=== PATIENT | female | born 1940 | race Caucasian/White ===

== ENCOUNTER 2023-07-26 01:26 | Inpatient (IN) | payer MEDICARE, MEDICAID ==
[~2023-07-26] VITALS: Ht 162.6 cm; Wt 72.6 kg
[2023-07-26] MEDS ORDERED: GUAIFENESIN 600MG ER TABLET PO ONE (01:45)
[2023-07-26] MEDS ORDERED: ACETAMINOPHEN 325MG TABLET PO ONE (01:45)
[2023-07-26 03:14] LABS: BASOPHILS % 0.4 % (0.0-2.0); HEMATOCRIT. 40.1 % (36.0-48.0); HEMOGLOBIN. 13.1 g/dL (12.0-16.0); LYMPHOCYTES % 15.8 % (20.0-50.0); MEAN CORPUSCULAR HEMOGLOBIN 28.9 pg (28.0-32.0); MEAN CORPUSCULAR HGB CONC 32.7 g/dL (31.0-37.0); MEAN CORPUSCULAR VOLUME 88.2 fL (81.0-99.0); MEAN PLATELET VOLUME 9.3 fl (7.4-10.4); MONOCYTES % 7.2 % (2.0-8.0); NEUTROPHILS % 76.6 % (40.0-76.0); PLATELET 141 x1000/uL (130-400); RED BLOOD CELL COUNT 4.55 mill/uL (4.2-5.4); RED CELL DISTRIBUTION WIDTH 14.7 % (11.6-14.6); WHITE BLOOD COUNT 9.5 x1000/uL (4.5-11.0)
[2023-07-26] MEDS ORDERED: CEFTRIAXONE 1GM PREMIX 50 ML IV ONE (03:26)
[2023-07-26 03:30] LABS: ALANINE AMINOTRANSFERASE 11 IU/L (10-49); ALBUMIN 4.4 g/dL (3.2-4.8); ASPARTATE AMINOTRANSFERASE 29 IU/L (<34); BILIRUBIN TOTAL 2.7 mg/dL (0.1-1.0); CALCIUM 9.2 mg/dL (8.7-10.4); CARBON DIOXIDE 34 mEq/L (21-32); CHLORIDE 98 mEq/L (98-107); CREATINE KINASE 259 IU/L (34-145); CREATININE 0.8 mg/dL (0.6-1.0); GLUCOSE 134 mg/dL (70-105); POTASSIUM 3.9 mEq/L (3.5-5.1); PROTEIN TOTAL 6.9 g/dL (6.0-8.3); SODIUM 140 mEq/L (136-145); UREA NITROGEN BLOOD 18 mg/dL (9-23)
[2023-07-26 03:36] LABS: INR 1.2; PROTHROMBIN TIME 12.4 sec (9.6-11.0)
[2023-07-26] MEDS ORDERED: AZITHROMYCIN 500MG/250ML 250 ML IV ONE (03:44)
[2023-07-26] MEDS ORDERED: CEFTRIAXONE 1GM PREMIX 50 ML IV NR (04:00)
[2023-07-26] MEDS ORDERED: AZITHROMYCIN 500MG in DEXTROSE 5% WATER 250ML IV NR (04:00)
[2023-07-26 05:08] LABS: ETHANOL BLOOD < 10 mg/dL (<10); TROPONIN I HIGH SENSITIVITY 17 ng/L (3.0-34)
[2023-07-26] MEDS ORDERED: SODIUM CHLORIDE 0.9% 1,000 ML IV ONE ×2 (05:30→07:15)
[2023-07-26] MEDS ORDERED: ACETAMINOPHEN 325MG TABLET PO PRN (06:30)
[2023-07-26] MEDS ORDERED: CLONIDINE 0.1MG TABLET PO PRN (06:30)
[2023-07-26] MEDS ORDERED: ONDANSETRON HCL 4MG/2ML INJ IV PRN (06:30)
[2023-07-26] MEDS ORDERED: DOCUSATE SODIUM 100MG CAPSULE PO PRN (06:30)
[2023-07-26] MEDS ORDERED: GUAIFENESIN 200MG/10ML SUGAR FREE UDC PO PRN (06:30)
[2023-07-26] MEDS ORDERED: MAGNESIUM/ALUMINUM HYDROXIDE/SIMETHICONE 30ML UDC PO PRN (06:30)
[2023-07-26] MEDS ORDERED: DIPHENHYDRAMINE 50MG/ML VIAL IV PRN (06:30)
[2023-07-26] MEDS ORDERED: IPRATROPIUM BROMIDE (0.02%) 0.5MG/2.5ML NEB HHN NR (07:00)
[2023-07-26] MEDS ORDERED: DEXTROSE 50% WATER 50ML SYRINGE IV PRN (07:00)
[2023-07-26 09:00] VITALS: BP 123/51; PULSE 107; RESP 20; TEMP 97.9
[2023-07-26] MEDS: BLOOD SUGAR DIAGNOSTIC STRIP TEST SCH ×4 (09:00→21:14)
[2023-07-26 10:00] VITALS: BP 123/51; PULSE 107; RESP 18; TEMP 97
[2023-07-26 12:00] VITALS: BP 127/58; PULSE 111; RESP 18; TEMP 98.1
[2023-07-26] MEDS: ENOXAPARIN 40MG/0.4ML SYR SUBCUT SCH (12:20)
[2023-07-26 16:00] VITALS: BP 118/69; PULSE 80; RESP 16; TEMP 97
[2023-07-26] MEDS: MONTELUKAST SODIUM 10MG TABLET PO SCH (17:54)
[2023-07-26 20:00] VITALS: BP 145/79; PULSE 125; RESP 20; TEMP 98.8
[2023-07-26] MEDS: BUDESONIDE 0.5MG/2ML NEB HHN SCH (20:05)
[2023-07-26] MEDS: INSULIN LISPRO 100 UNITS/ML SUBCUT SCH (21:00)
[2023-07-26] MEDS: ATORVASTATIN CALCIUM 10MG TABLET PO SCH (22:56)
[2023-07-27] VITALS (62 sets, daily range): BP systolic 90–145; BP diastolic 47–101; PULSE 85–119; RESP 18–30; TEMP 97.1–101.4
[2023-07-27 00:53] LABS: BG BASE EXCESS 3.1 mmol/L (-2.0-2.0); BG CARBOXYHEMOGLOBIN 0.3 % (0.5-1.5); BG DEOXYHEMOGLOBIN 10.5 % (0.0-5.0); BG FRACTION INSPIRED OXYGEN 60; BG HCO3 ACT 33.4 mmol/L (22.0-26.0); BG METHEMOGLOBIN 0.4 % (0.0-1.5); BG OXYGEN SATURATION 89.4 % (92.0-98.5); BG OXYHEMOGLOBIN 88.8 % (94.0-97.0); BG PH 7.222 (7.350-7.450); BG PO2 62.8 mmHg (75.0-100.0); BG SAMPLE SITE RIGHT RADIAL; BG TOTAL HEMOGLOBIN 13.1 g/dL (12.0-18.0); BG VENT MODE MASK - SIMPLE
[2023-07-27 04:55] LABS: BG BASE EXCESS 1.2 mmol/L (-2.0-2.0); BG CARBOXYHEMOGLOBIN 0.2 % (0.5-1.5); BG DEOXYHEMOGLOBIN 2.4 % (0.0-5.0); BG FRACTION INSPIRED OXYGEN 60; BG HCO3 ACT 32.3 mmol/L (22.0-26.0); BG METHEMOGLOBIN 0.3 % (0.0-1.5); BG OXYGEN SATURATION 97.6 % (92.0-98.5); BG OXYHEMOGLOBIN 97.1 % (94.0-97.0); BG PCO2 91.1 mmHg (35.0-45.0); BG PH 7.168 (7.350-7.450); BG PO2 108.5 mmHg (75.0-100.0); BG SAMPLE SITE RIGHT RADIAL; BG TOTAL HEMOGLOBIN 12.8 g/dL (12.0-18.0); BG VENT MODE MASK - BIPAP
[2023-07-27] MEDS: CEFTRIAXONE 1,000 MG in DEXTROSE 5% WATER 50 ML IV SCH (05:11)
[2023-07-27] MEDS ORDERED: FENTANYL CITRATE/PF 2,500 MCG in SODIUM CHLORIDE 0.9% 200 ML IV PRN ×2 (05:45→05:48)
[2023-07-27] MEDS ORDERED: MIDAZOLAM 100MG/100ML PMX 100 ML IV PRN (05:45)
[2023-07-27] MEDS: BLOOD SUGAR DIAGNOSTIC STRIP TEST SCH ×4 (06:15→23:55)
[2023-07-27] MEDS: INSULIN LISPRO 100 UNITS/ML SUBCUT SCH ×3 (06:22→17:10)
[2023-07-27] MEDS: MIDAZOLAM HCL 100 MG in SODIUM CHLORIDE 0.9% 100 ML IV PRN (06:35)
[2023-07-27] MEDS: AZITHROMYCIN 500MG in DEXTROSE 5% WATER 250ML IV SCH (06:35)
[2023-07-27] MEDS: ENOXAPARIN 40MG/0.4ML SYR SUBCUT SCH (08:25)
[2023-07-27] MEDS: ACETAMINOPHEN 325MG TABLET PO PRN (08:26)
[2023-07-27] MEDS: BUDESONIDE 0.5MG/2ML NEB HHN SCH ×2 (08:46→20:25)
[2023-07-27 08:49] LABS: BG BASE EXCESS 2.8 mmol/L (-2.0-2.0); BG CARBOXYHEMOGLOBIN 0.3 % (0.5-1.5); BG DEOXYHEMOGLOBIN 0.8 % (0.0-5.0); BG FRACTION INSPIRED OXYGEN 60; BG HCO3 ACT 27.7 mmol/L (22.0-26.0); BG METHEMOGLOBIN 0.2 % (0.0-1.5); BG OXYGEN SATURATION 99.2 % (92.0-98.5); BG OXYHEMOGLOBIN 98.7 % (94.0-97.0); BG PCO2 43.9 mmHg (35.0-45.0); BG PH 7.418 (7.350-7.450); BG PO2 208.3 mmHg (75.0-100.0); BG SAMPLE SITE RIGHT RADIAL; BG TOTAL HEMOGLOBIN 12.1 g/dL (12.0-18.0); BG VENT MODE VENT - AC
[2023-07-27 08:54] LABS: BASOPHILS % 0.3 % (0.0-2.0); HEMATOCRIT. 33.8 % (36.0-48.0); LYMPHOCYTES % 12.4 % (20.0-50.0); MEAN CORPUSCULAR HEMOGLOBIN 29.2 pg (28.0-32.0); MEAN CORPUSCULAR HGB CONC 32.6 g/dL (31.0-37.0); MEAN CORPUSCULAR VOLUME 89.5 fL (81.0-99.0); MEAN PLATELET VOLUME 9.6 fl (7.4-10.4); NEUTROPHILS % 79.3 % (40.0-76.0); PLATELET 125 x1000/uL (130-400); RED BLOOD CELL COUNT 3.77 mill/uL (4.2-5.4); RED CELL DISTRIBUTION WIDTH 14.7 % (11.6-14.6); WHITE BLOOD COUNT 6.8 x1000/uL (4.5-11.0)
[2023-07-27] MEDS ORDERED: CEFTRIAXONE 1GM PREMIX 50 ML IV SCH (09:00)
[2023-07-27] MEDS ORDERED: AZITHROMYCIN 500MG/250ML 250 ML IV SCH (09:00)
[2023-07-27] MEDS: PANTOPRAZOLE SODIUM 40 MG/VIAL IV SCH (14:47)
[2023-07-27] MEDS: IPRATROPIUM/ALBUTEROL 0.5-3(2.5)MG/3ML NEB HHN SCH ×2 (16:20→20:25)
[2023-07-27] MEDS: MONTELUKAST SODIUM 10MG TABLET PO SCH (17:39)
[2023-07-27 20:18] LABS: ALANINE AMINOTRANSFERASE 9 IU/L (10-49); ALBUMIN 3.7 g/dL (3.2-4.8); ASPARTATE AMINOTRANSFERASE 33 IU/L (<34); BILIRUBIN TOTAL 1.8 mg/dL (0.1-1.0); CALCIUM 8.7 mg/dL (8.7-10.4); CARBON DIOXIDE 20 mEq/L (21-32); CHLORIDE 101 mEq/L (98-107); CHOLESTEROL 93 mg/dL (<200); GLUCOSE 202 mg/dL (70-105); HDL CHOLESTEROL 49 mg/dL (>65); LDL CHOLESTEROL 26 mg/dL (5-100); POTASSIUM 3.7 mEq/L (3.5-5.1); PROTEIN TOTAL 5.8 g/dL (6.0-8.3); SODIUM 143 mEq/L (136-145); T4 FREE 1.34 ng/dL (0.89-1.76); THYROID STIMULATING HORMONE 0.36 uIU/mL (0.55-4.78); TRIGLYCERIDE 87 mg/dL (0-150); UREA NITROGEN BLOOD 22 mg/dL (9-23)
[2023-07-27] MEDS: ATORVASTATIN CALCIUM 10MG TABLET PO SCH (20:44)
[2023-07-28] VITALS (64 sets, daily range): BP systolic 93–172; BP diastolic 51–120; PULSE 91–155; RESP 0–33; TEMP 98.7–101
[2023-07-28] MEDS: INSULIN LISPRO 100 UNITS/ML SUBCUT SCH ×5 (00:07→23:51)
[2023-07-28] MEDS: IPRATROPIUM/ALBUTEROL 0.5-3(2.5)MG/3ML NEB HHN SCH ×4 (04:49→21:06)
[2023-07-28 05:30] LABS: BASOPHILS % 0.3 % (0.0-2.0); EOSINOPHILS % 0.3 % (0.0-5.0); HEMATOCRIT. 31.6 % (36.0-48.0); HEMOGLOBIN. 10.6 g/dL (12.0-16.0); LYMPHOCYTES % 11.2 % (20.0-50.0); MEAN CORPUSCULAR HEMOGLOBIN 29.2 pg (28.0-32.0); MEAN CORPUSCULAR HGB CONC 33.6 g/dL (31.0-37.0); MEAN CORPUSCULAR VOLUME 87.1 fL (81.0-99.0); MEAN PLATELET VOLUME 9.6 fl (7.4-10.4); MONOCYTES % 9.4 % (2.0-8.0); NEUTROPHILS % 78.8 % (40.0-76.0); PLATELET 143 x1000/uL (130-400); RED BLOOD CELL COUNT 3.63 mill/uL (4.2-5.4); RED CELL DISTRIBUTION WIDTH 14.3 % (11.6-14.6); WHITE BLOOD COUNT 5.8 x1000/uL (4.5-11.0)
[2023-07-28 05:59] LABS: CALCIUM 8.8 mg/dL (8.7-10.4); CARBON DIOXIDE 32 mEq/L (21-32); CHLORIDE 99 mEq/L (98-107); CREATININE 0.9 mg/dL (0.6-1.0); GLUCOSE 224 mg/dL (70-105); PHOSPHORUS 1.3 mg/dL (2.5-4.9); POTASSIUM 3.1 mEq/L (3.5-5.1); SODIUM 139 mEq/L (136-145); UREA NITROGEN BLOOD 30 mg/dL (9-23)
[2023-07-28] MEDS: MIDAZOLAM HCL 100 MG in SODIUM CHLORIDE 0.9% 100 ML IV PRN (06:01)
[2023-07-28] MEDS: AZITHROMYCIN 500MG in DEXTROSE 5% WATER 250ML IV SCH (06:26)
[2023-07-28] MEDS: CEFTRIAXONE 1,000 MG in DEXTROSE 5% WATER 50 ML IV SCH (06:26)
[2023-07-28] MEDS: BLOOD SUGAR DIAGNOSTIC STRIP TEST SCH ×4 (06:27→23:51)
[2023-07-28] MEDS: BUDESONIDE 0.5MG/2ML NEB HHN SCH ×2 (07:51→21:06)
[2023-07-28] MEDS: PANTOPRAZOLE SODIUM 40 MG/VIAL IV SCH (08:26)
[2023-07-28] MEDS: ENOXAPARIN 40MG/0.4ML SYR SUBCUT SCH (08:26)
[2023-07-28 09:17] LABS: BG CARBOXYHEMOGLOBIN 0.3 % (0.5-1.5); BG DEOXYHEMOGLOBIN 2.6 % (0.0-5.0); BG FRACTION INSPIRED OXYGEN 40; BG HCO3 ACT 31.5 mmol/L (22.0-26.0); BG METHEMOGLOBIN 0.3 % (0.0-1.5); BG OXYGEN SATURATION 97.4 % (92.0-98.5); BG OXYHEMOGLOBIN 96.8 % (94.0-97.0); BG PCO2 39.6 mmHg (35.0-45.0); BG PH 7.518 (7.350-7.450); BG SAMPLE SITE RIGHT RADIAL; BG TOTAL HEMOGLOBIN 11.5 g/dL (12.0-18.0); BG TOTAL RESPIRATORY RATE 23 b/min; BG VENT MODE VENT - AC
[2023-07-28] MEDS: KCL 20MEQ/100ML X 2 FOR TOTAL KCL 40MEQ/200ML IV SCH ×2 (11:22→13:06)
[2023-07-28] MEDS ORDERED: POTASSIUM CHLORIDE INJ 40 MEQ in DEXT 5% WATER 250 ML IV ONE (12:00)
[2023-07-28] MEDS: ACETAMINOPHEN 325MG TABLET PO PRN (14:03)
[2023-07-28] MEDS: MONTELUKAST SODIUM 10MG TABLET PO SCH (16:55)
[2023-07-28] MEDS ORDERED: MORPHINE SULFATE 2 MG/ML CPJ (NOT FOR IM USE) IV PRN (19:00)
[2023-07-28] MEDS ORDERED: NALOXONE HCL 0.4MG/ML VIAL IV PRN (19:00)
[2023-07-28] MEDS: LORAZEPAM 2MG/ML CPJ IV PRN ×2 (19:11→19:16)
[2023-07-28] MEDS ORDERED: LORAZEPAM 2MG/ML CPJ IV NR (19:15)
[2023-07-28] MEDS ORDERED: MAGNESIUM 2 G PREMIX 50 ML IV NR (21:00)
[2023-07-28] MEDS ORDERED: POTASSIUM PHOS,M-BASIC-D-BASIC 15 MMOL in DEXT 5% WATER 245 ML IV NR (21:00)
[2023-07-28 21:04] LABS: HEMATOCRIT 30.7 % (36.0-48.0); HEMOGLOBIN 10.2 g/dL (12.0-16.0); MEAN CORPUSCULAR HEMOGLOBIN 29.4 pg (28.0-32.0); MEAN CORPUSCULAR HGB CONC 33.1 g/dL (31.0-37.0); MEAN CORPUSCULAR VOLUME 88.7 fL (81.0-99.0); PLATELET 138 x1000/uL (130-400); RED BLOOD CELL COUNT 3.46 mill/uL (4.2-5.4); RED CELL DISTRIBUTION WIDTH 14.3 % (11.6-14.6); WHITE BLOOD COUNT 5.3 x1000/uL (4.5-11.0)
[2023-07-28] MEDS: ATORVASTATIN CALCIUM 10MG TABLET PO SCH (21:07)
[2023-07-28 21:23] LABS: CALCIUM 8.5 mg/dL (8.7-10.4); CARBON DIOXIDE 33 mEq/L (21-32); CHLORIDE 100 mEq/L (98-107); CREATININE 0.7 mg/dL (0.6-1.0); GLUCOSE 125 mg/dL (70-105); PHOSPHORUS 1.4 mg/dL (2.5-4.9); SODIUM 137 mEq/L (136-145); UREA NITROGEN BLOOD 20 mg/dL (9-23)
[2023-07-28] MEDS ORDERED: SODIUM PHOS,M-BASIC-D-BASIC 15 MM in DEXT 5% WATER 245 ML IV NR (23:00)
[2023-07-29] VITALS (80 sets, daily range): BP systolic 73–133; BP diastolic 43–83; PULSE 87–129; RESP 15–33; TEMP 88.7–98.9
[2023-07-29] MEDS: IPRATROPIUM/ALBUTEROL 0.5-3(2.5)MG/3ML NEB HHN SCH ×4 (00:47→20:25)
[2023-07-29 05:34] LABS: BASOPHILS % 0.2 % (0.0-2.0); EOSINOPHILS % 0.3 % (0.0-5.0); HEMATOCRIT. 30.4 % (36.0-48.0); HEMOGLOBIN. 10.3 g/dL (12.0-16.0); LYMPHOCYTES % 15.1 % (20.0-50.0); MEAN CORPUSCULAR HEMOGLOBIN 29.9 pg (28.0-32.0); MEAN CORPUSCULAR HGB CONC 33.9 g/dL (31.0-37.0); MEAN CORPUSCULAR VOLUME 88.1 fL (81.0-99.0); MEAN PLATELET VOLUME 9.1 fl (7.4-10.4); MONOCYTES % 10.9 % (2.0-8.0); NEUTROPHILS % 73.5 % (40.0-76.0); PLATELET 131 x1000/uL (130-400); RED BLOOD CELL COUNT 3.45 mill/uL (4.2-5.4); RED CELL DISTRIBUTION WIDTH 14.2 % (11.6-14.6); WHITE BLOOD COUNT 5.7 x1000/uL (4.5-11.0)
[2023-07-29 05:38] LABS: CALCIUM 8.6 mg/dL (8.7-10.4); CARBON DIOXIDE 32 mEq/L (21-32); CHLORIDE 97 mEq/L (98-107); CREATININE 0.7 mg/dL (0.6-1.0); GLUCOSE 151 mg/dL (70-105); PHOSPHORUS 3.2 mg/dL (2.5-4.9); POTASSIUM 3.6 mEq/L (3.5-5.1); SODIUM 137 mEq/L (136-145); UREA NITROGEN BLOOD 14 mg/dL (9-23)
[2023-07-29] MEDS: BLOOD SUGAR DIAGNOSTIC STRIP TEST SCH ×3 (05:43→18:22)
[2023-07-29] MEDS: INSULIN LISPRO 100 UNITS/ML SUBCUT SCH ×3 (05:43→18:00)
[2023-07-29] MEDS: AZITHROMYCIN 500MG in DEXTROSE 5% WATER 250ML IV SCH (05:47)
[2023-07-29] MEDS: CEFTRIAXONE 1,000 MG in DEXTROSE 5% WATER 50 ML IV SCH (05:47)
[2023-07-29] MEDS: LORAZEPAM 2MG/ML CPJ IV PRN (07:28)
[2023-07-29] MEDS: BUDESONIDE 0.5MG/2ML NEB HHN SCH ×2 (09:00→20:25)
[2023-07-29] MEDS ORDERED: LIDOCAINE HCL 1% 10 MG/ML 10ML VIAL ONE (09:14)
[2023-07-29 10:26] LABS: BG BASE EXCESS 5.5 mmol/L (-2.0-2.0); BG CARBOXYHEMOGLOBIN 0.2 % (0.5-1.5); BG DEOXYHEMOGLOBIN 1.9 % (0.0-5.0); BG FRACTION INSPIRED OXYGEN 40; BG METHEMOGLOBIN 0.3 % (0.0-1.5); BG OXYGEN SATURATION 98.1 % (92.0-98.5); BG OXYHEMOGLOBIN 97.6 % (94.0-97.0); BG PCO2 43.2 mmHg (35.0-45.0); BG PH 7.459 (7.350-7.450); BG PO2 115.4 mmHg (75.0-100.0); BG SAMPLE SITE RIGHT BRACHIAL; BG TOTAL HEMOGLOBIN 11.3 g/dL (12.0-18.0); BG VENT MODE VENT - AC
[2023-07-29] MEDS: PANTOPRAZOLE SODIUM 40 MG/VIAL IV SCH (10:51)
[2023-07-29] MEDS: ENOXAPARIN 40MG/0.4ML SYR SUBCUT SCH (10:52)
[2023-07-29] MEDS ORDERED: LORAZEPAM 2MG/ML CPJ IV PRN (13:45)
[2023-07-29] MEDS ORDERED: MORPHINE SULFATE 2 MG/ML CPJ (NOT FOR IM USE) IV PRN (13:45)
[2023-07-29] MEDS: MONTELUKAST SODIUM 10MG TABLET PO SCH (18:23)
[2023-07-29 18:27] LABS: BG BASE EXCESS 6.4 mmol/L (-2.0-2.0); BG CARBOXYHEMOGLOBIN 0.2 % (0.5-1.5); BG DEOXYHEMOGLOBIN 1.9 % (0.0-5.0); BG FRACTION INSPIRED OXYGEN 40; BG HCO3 ACT 32.3 mmol/L (22.0-26.0); BG METHEMOGLOBIN 0.3 % (0.0-1.5); BG OXYGEN SATURATION 98.1 % (92.0-98.5); BG OXYHEMOGLOBIN 97.6 % (94.0-97.0); BG PCO2 52.2 mmHg (35.0-45.0); BG PH 7.409 (7.350-7.450); BG PO2 121.1 mmHg (75.0-100.0); BG SAMPLE SITE RIGHT RADIAL; BG TOTAL HEMOGLOBIN 12.5 g/dL (12.0-18.0); BG VENT MODE VENT - SIMV
[2023-07-29] MEDS: ATORVASTATIN CALCIUM 10MG TABLET PO SCH (21:36)
[2023-07-30] VITALS (83 sets, daily range): BP systolic 74–170; BP diastolic 40–149; PULSE 80–118; RESP 16–34; TEMP 98.1–98.9; O2SAT 98
[2023-07-30] MEDS: BLOOD SUGAR DIAGNOSTIC STRIP TEST SCH ×5 (00:43→23:41)
[2023-07-30] MEDS: IPRATROPIUM/ALBUTEROL 0.5-3(2.5)MG/3ML NEB HHN SCH ×4 (04:03→20:18)
[2023-07-30 04:57] LABS: BASOPHILS % 0.2 % (0.0-2.0); HEMATOCRIT. 31.6 % (36.0-48.0); HEMOGLOBIN. 10.3 g/dL (12.0-16.0); LYMPHOCYTES % 20.2 % (20.0-50.0); MEAN CORPUSCULAR HEMOGLOBIN 29.4 pg (28.0-32.0); MEAN CORPUSCULAR HGB CONC 32.7 g/dL (31.0-37.0); MEAN PLATELET VOLUME 9.6 fl (7.4-10.4); MONOCYTES % 12.2 % (2.0-8.0); NEUTROPHILS % 66.4 % (40.0-76.0); PLATELET 142 x1000/uL (130-400); RED BLOOD CELL COUNT 3.51 mill/uL (4.2-5.4); RED CELL DISTRIBUTION WIDTH 14.4 % (11.6-14.6); WHITE BLOOD COUNT 6.3 x1000/uL (4.5-11.0)
[2023-07-30 05:17] LABS: CALCIUM 8.8 mg/dL (8.7-10.4); CARBON DIOXIDE 32 mEq/L (21-32); CHLORIDE 101 mEq/L (98-107); CREATININE 0.6 mg/dL (0.6-1.0); GLUCOSE 133 mg/dL (70-105); PHOSPHORUS 3.1 mg/dL (2.5-4.9); POTASSIUM 3.6 mEq/L (3.5-5.1); SODIUM 139 mEq/L (136-145); UREA NITROGEN BLOOD 18 mg/dL (9-23)
[2023-07-30] MEDS: CEFTRIAXONE 1,000 MG in DEXTROSE 5% WATER 50 ML IV SCH (05:57)
[2023-07-30] MEDS: AZITHROMYCIN 500MG in DEXTROSE 5% WATER 250ML IV SCH (05:57)
[2023-07-30] MEDS: INSULIN LISPRO 100 UNITS/ML SUBCUT SCH ×5 (05:58→23:47)
[2023-07-30] MEDS: PANTOPRAZOLE SODIUM 40 MG/VIAL IV SCH (08:40)
[2023-07-30] MEDS: ENOXAPARIN 40MG/0.4ML SYR SUBCUT SCH (08:40)
[2023-07-30] MEDS: BUDESONIDE 0.5MG/2ML NEB HHN SCH ×2 (08:45→20:19)
[2023-07-30 09:23] LABS: BG BASE EXCESS 6.8 mmol/L (-2.0-2.0); BG CARBOXYHEMOGLOBIN 0.3 % (0.5-1.5); BG DEOXYHEMOGLOBIN 1.7 % (0.0-5.0); BG FRACTION INSPIRED OXYGEN 40; BG HCO3 ACT 30.3 mmol/L (22.0-26.0); BG METHEMOGLOBIN 0.2 % (0.0-1.5); BG OXYGEN SATURATION 98.3 % (92.0-98.5); BG OXYHEMOGLOBIN 97.8 % (94.0-97.0); BG PCO2 38.8 mmHg (35.0-45.0); BG PO2 115.1 mmHg (75.0-100.0); BG SAMPLE SITE RIGHT RADIAL; BG VENT MODE VENT - AC
[2023-07-30 14:34] LABS: BG BASE EXCESS 4.9 mmol/L (-2.0-2.0); BG CARBOXYHEMOGLOBIN 0.3 % (0.5-1.5); BG DEOXYHEMOGLOBIN 2.3 % (0.0-5.0); BG FRACTION INSPIRED OXYGEN 40; BG HCO3 ACT 30.5 mmol/L (22.0-26.0); BG METHEMOGLOBIN 0.3 % (0.0-1.5); BG OXYGEN SATURATION 97.7 % (92.0-98.5); BG OXYHEMOGLOBIN 97.1 % (94.0-97.0); BG PCO2 48.9 mmHg (35.0-45.0); BG PH 7.413 (7.350-7.450); BG PO2 106.8 mmHg (75.0-100.0); BG SAMPLE SITE RIGHT BRACHIAL; BG TOTAL HEMOGLOBIN 13.1 g/dL (12.0-18.0); BG VENT MODE VENT - CPAP
[2023-07-30] MEDS: MONTELUKAST SODIUM 10MG TABLET PO SCH (18:46)
[2023-07-30] MEDS: ATORVASTATIN CALCIUM 10MG TABLET PO SCH (21:33)
[2023-07-31] VITALS (40 sets, daily range): BP systolic 94–126; BP diastolic 42–89; PULSE 97–106; RESP 16–32; TEMP 97.5–99.1; O2SAT 97–100
[2023-07-31] MEDS: IPRATROPIUM/ALBUTEROL 0.5-3(2.5)MG/3ML NEB HHN SCH ×4 (01:58→18:00)
[2023-07-31 05:27] LABS: BASOPHILS % 0.4 % (0.0-2.0); EOSINOPHILS % 2.1 % (0.0-5.0); HEMOGLOBIN. 10.3 g/dL (12.0-16.0); MEAN CORPUSCULAR HEMOGLOBIN 28.9 pg (28.0-32.0); MEAN CORPUSCULAR HGB CONC 32.2 g/dL (31.0-37.0); MEAN CORPUSCULAR VOLUME 89.5 fL (81.0-99.0); MEAN PLATELET VOLUME 9.2 fl (7.4-10.4); MONOCYTES % 11.1 % (2.0-8.0); NEUTROPHILS % 69.4 % (40.0-76.0); PLATELET 185 x1000/uL (130-400); RED BLOOD CELL COUNT 3.57 mill/uL (4.2-5.4); RED CELL DISTRIBUTION WIDTH 14.5 % (11.6-14.6); WHITE BLOOD COUNT 6.7 x1000/uL (4.5-11.0)
[2023-07-31] MEDS: CEFTRIAXONE 1,000 MG in DEXTROSE 5% WATER 50 ML IV SCH (05:43)
[2023-07-31] MEDS: AZITHROMYCIN 500MG in DEXTROSE 5% WATER 250ML IV SCH (05:43)
[2023-07-31 05:52] LABS: CARBON DIOXIDE 35 mEq/L (21-32); CHLORIDE 101 mEq/L (98-107); CREATININE 0.6 mg/dL (0.6-1.0); GLUCOSE 173 mg/dL (70-105); POTASSIUM 3.3 mEq/L (3.5-5.1); SODIUM 141 mEq/L (136-145); UREA NITROGEN BLOOD 12 mg/dL (9-23)
[2023-07-31] MEDS: BLOOD SUGAR DIAGNOSTIC STRIP TEST SCH ×3 (06:08→17:42)
[2023-07-31] MEDS: INSULIN LISPRO 100 UNITS/ML SUBCUT SCH ×3 (06:12→17:48)
[2023-07-31] MEDS ORDERED: POTASSIUM CHLORIDE 20MEQ/PACKET PO NR (07:00)
[2023-07-31] MEDS: BUDESONIDE 0.5MG/2ML NEB HHN SCH (08:15)
[2023-07-31] MEDS: ENOXAPARIN 40MG/0.4ML SYR SUBCUT SCH (09:00)
[2023-07-31] MEDS: PANTOPRAZOLE SODIUM 40 MG/VIAL IV SCH (09:00)
[2023-07-31 09:30] LABS: BG BASE EXCESS 7.7 mmol/L (-2.0-2.0); BG CARBOXYHEMOGLOBIN 0.1 % (0.5-1.5); BG DEOXYHEMOGLOBIN 1.9 % (0.0-5.0); BG FRACTION INSPIRED OXYGEN 40; BG HCO3 ACT 34.7 mmol/L (22.0-26.0); BG METHEMOGLOBIN 0.3 % (0.0-1.5); BG OXYGEN SATURATION 98.1 % (92.0-98.5); BG OXYHEMOGLOBIN 97.7 % (94.0-97.0); BG PCO2 60.6 mmHg (35.0-45.0); BG PH 7.376 (7.350-7.450); BG PO2 110.9 mmHg (75.0-100.0); BG SAMPLE SITE RIGHT BRACHIAL; BG TOTAL HEMOGLOBIN 12.5 g/dL (12.0-18.0); BG VENT MODE NASAL CANNULA
[2023-07-31 15:14] LABS: PHOSPHORUS 4.3 mg/dL (2.5-4.9)
[2023-07-31] MEDS: MONTELUKAST SODIUM 10MG TABLET PO SCH (17:42)
[2023-07-31] MEDS: ATORVASTATIN CALCIUM 10MG TABLET PO SCH (20:53)
[2023-08-01] VITALS (9 sets, daily range): BP systolic 109–159; BP diastolic 50–82; PULSE 100–107; RESP 18–20; TEMP 97.5–100.6; O2SAT 92–93
[2023-08-01] MEDS: BLOOD SUGAR DIAGNOSTIC STRIP TEST SCH ×4 (00:20→17:48)
[2023-08-01] MEDS: ACETAMINOPHEN 325MG TABLET PO PRN (04:55)
[2023-08-01] MEDS: INSULIN LISPRO 100 UNITS/ML SUBCUT SCH ×4 (06:00→17:48)
[2023-08-01 06:24] LABS: BASOPHILS % 0.2 % (0.0-2.0); EOSINOPHILS % 0.8 % (0.0-5.0); HEMATOCRIT. 31.2 % (36.0-48.0); HEMOGLOBIN. 10.5 g/dL (12.0-16.0); LYMPHOCYTES % 14.9 % (20.0-50.0); MEAN CORPUSCULAR HEMOGLOBIN 29.4 pg (28.0-32.0); MEAN CORPUSCULAR HGB CONC 33.8 g/dL (31.0-37.0); MEAN CORPUSCULAR VOLUME 87.2 fL (81.0-99.0); MEAN PLATELET VOLUME 8.7 fl (7.4-10.4); MONOCYTES % 12.9 % (2.0-8.0); NEUTROPHILS % 71.2 % (40.0-76.0); PLATELET 280 x1000/uL (130-400); RED BLOOD CELL COUNT 3.57 mill/uL (4.2-5.4); RED CELL DISTRIBUTION WIDTH 14.2 % (11.6-14.6); WHITE BLOOD COUNT 7.8 x1000/uL (4.5-11.0)
[2023-08-01 06:29] LABS: CALCIUM 9.2 mg/dL (8.7-10.4); CARBON DIOXIDE 35 mEq/L (21-32); CHLORIDE 101 mEq/L (98-107); CREATININE 0.6 mg/dL (0.6-1.0); GLUCOSE 137 mg/dL (70-105); POTASSIUM 3.8 mEq/L (3.5-5.1); SODIUM 141 mEq/L (136-145); UREA NITROGEN BLOOD 10 mg/dL (9-23)
[2023-08-01] MEDS: IPRATROPIUM/ALBUTEROL 0.5-3(2.5)MG/3ML NEB HHN SCH ×4 (09:00→21:53)
[2023-08-01] MEDS: ENOXAPARIN 40MG/0.4ML SYR SUBCUT SCH (10:07)
[2023-08-01] MEDS: PANTOPRAZOLE SODIUM 40 MG/VIAL IV SCH (10:07)
[2023-08-01 10:43] LABS: BG BASE EXCESS 8.5 mmol/L (-2.0-2.0); BG CARBOXYHEMOGLOBIN 0.1 % (0.5-1.5); BG DEOXYHEMOGLOBIN 5.1 % (0.0-5.0); BG FRACTION INSPIRED OXYGEN 32; BG HCO3 ACT 34.7 mmol/L (22.0-26.0); BG OXYGEN SATURATION 94.9 % (92.0-98.5); BG OXYHEMOGLOBIN 94.8 % (94.0-97.0); BG PCO2 56.2 mmHg (35.0-45.0); BG PH 7.409 (7.350-7.450); BG PO2 74.7 mmHg (75.0-100.0); BG SAMPLE SITE RIGHT RADIAL; BG TOTAL HEMOGLOBIN 11.5 g/dL (12.0-18.0); BG VENT MODE NASAL CANNULA
[2023-08-01] MEDS ORDERED: IPRATROPIUM/ALBUTEROL 0.5-3(2.5)MG/3ML NEB HHN PRN (17:45)
[2023-08-01] MEDS ORDERED: METHYLPREDNISOLONE SOD SUCC 40MG/ML (ACT-O-VIAL) IV NR (17:45)
[2023-08-01] MEDS: MONTELUKAST SODIUM 10MG TABLET PO SCH (17:47)
[2023-08-01] MEDS: ATORVASTATIN CALCIUM 10MG TABLET PO SCH (21:47)
[2023-08-01] MEDS: BUDESONIDE 0.5MG/2ML NEB HHN SCH (21:53)
[2023-08-02] VITALS (11 sets, daily range): BP systolic 127–139; BP diastolic 55–79; PULSE 67–107; RESP 18–29; TEMP 97.3–99.3; O2SAT 93–100
[2023-08-02] MEDS: BLOOD SUGAR DIAGNOSTIC STRIP TEST SCH ×4 (00:08→17:08)
[2023-08-02] MEDS: INSULIN LISPRO 100 UNITS/ML SUBCUT SCH ×4 (00:21→17:07)
[2023-08-02] MEDS: IPRATROPIUM/ALBUTEROL 0.5-3(2.5)MG/3ML NEB HHN SCH ×4 (02:00→21:09)
[2023-08-02] MEDS: PANTOPRAZOLE SODIUM 40 MG/VIAL IV SCH (08:42)
[2023-08-02] MEDS: ENOXAPARIN 40MG/0.4ML SYR SUBCUT SCH (08:43)
[2023-08-02] MEDS: BUDESONIDE 0.5MG/2ML NEB HHN SCH ×2 (09:30→21:08)
[2023-08-02 10:28] LABS: BG CARBOXYHEMOGLOBIN 0.3 % (0.5-1.5); BG DEOXYHEMOGLOBIN 5.7 % (0.0-5.0); BG FRACTION INSPIRED OXYGEN 28; BG METHEMOGLOBIN 0.3 % (0.0-1.5); BG OXYGEN SATURATION 94.3 % (92.0-98.5); BG OXYHEMOGLOBIN 93.7 % (94.0-97.0); BG PCO2 55.3 mmHg (35.0-45.0); BG PH 7.432 (7.350-7.450); BG PO2 71.8 mmHg (75.0-100.0); BG SAMPLE SITE RIGHT RADIAL; BG TOTAL HEMOGLOBIN 11.8 g/dL (12.0-18.0); BG VENT MODE NASAL CANNULA
[2023-08-02] MEDS ORDERED: MONT-46 PO (13:30)
[2023-08-02] MEDS ORDERED: ATOR10TA PO (13:30)
[2023-08-02] MEDS ORDERED: METH4TAB3 PO (13:31)
[2023-08-02] MEDS: MONTELUKAST SODIUM 10MG TABLET PO SCH (17:35)
[2023-08-02] MEDS: ATORVASTATIN CALCIUM 10MG TABLET PO SCH (21:59)
[2023-08-03] VITALS: BP 124/60; PULSE 105; RESP 20; TEMP 98.2
[2023-08-03 00:08] VITALS: RESP 23
[2023-08-03] MEDS: BLOOD SUGAR DIAGNOSTIC STRIP TEST SCH ×2 (00:09→05:36)
[2023-08-03 02:05] VITALS: RESP 23
[2023-08-03] MEDS: IPRATROPIUM/ALBUTEROL 0.5-3(2.5)MG/3ML NEB HHN SCH (02:05)
[2023-08-03 04:00] VITALS: BP 122/57; PULSE 104; RESP 20; TEMP 98.4
[2023-08-03] MEDS: INSULIN LISPRO 100 UNITS/ML SUBCUT SCH ×2 (05:36)
[2023-08-03 08:22] VITALS: BP 137/60; PULSE 109; RESP 18; TEMP 98.1
[2023-08-03] MEDS: PANTOPRAZOLE SODIUM 40 MG/VIAL IV SCH (09:01)
[2023-08-03] MEDS: ENOXAPARIN 40MG/0.4ML SYR SUBCUT SCH (09:02)
== END 2023-08-03 09:40 | disposition home health service (06) | DRG 720 ==
LOC: ER 01:26 → 7WST 05:41 → EDBEDREQ 05:52 → EDBEDREQTM 05:52 → SUPCPDRO 07:02 → MICUSO 07-27 05:45 → 7WST 07-31 18:30
PROVIDERS: ADMIT Internal Medicine; ATTEND Internal Medicine
PROC: 5A1945Z Respiratory Ventilation, 24-96 Consecutive Hours (ICD-10-PCS; 2023-07-27)
PROC: 5A09357 Assistance with Respiratory Ventilation, Less than 24 Consecutive Hours, Continuous Positive Airway Pressure (ICD-10-PCS; 2023-07-27)
PROC: 0BH17EZ Insertion of Endotracheal Airway into Trachea, Via Natural or Artificial Opening (ICD-10-PCS; 2023-07-27)
PROC: 02HV33Z Insertion of Infusion Device into Superior Vena Cava, Percutaneous Approach (ICD-10-PCS; principal; 2023-07-29)
PROC: B548ZZA Ultrasonography of Superior Vena Cava, Guidance (ICD-10-PCS; 2023-07-29)
DX: A41.9 Sepsis, unspecified organism (principal); J96.02 Acute respiratory failure with hypercapnia; G92.8 Other toxic encephalopathy; J18.9 Pneumonia, unspecified organism; I11.0 Hypertensive heart disease with heart failure; Z99.81 Dependence on supplemental oxygen; I50.9 Heart failure, unspecified; J44.0 Chronic obstructive pulmonary disease with (acute) lower respiratory infection; J44.1 Chronic obstructive pulmonary disease with (acute) exacerbation; Z20.822 Contact with and (suspected) exposure to COVID-19; Z66 Do not resuscitate; J98.11 Atelectasis; E11.9 Type 2 diabetes mellitus without complications; R79.89 Other specified abnormal findings of blood chemistry; E78.5 Hyperlipidemia, unspecified; E80.6 Other disorders of bilirubin metabolism; Z79.84 Long term (current) use of oral hypoglycemic drugs; Z86.16 Personal history of COVID-19; Z79.51 Long term (current) use of inhaled steroids; Z79.899 Other long term (current) drug therapy; Z83.3 Family history of diabetes mellitus; Z80.0 Family history of malignant neoplasm of digestive organs
CPT/HCPCS: 31500; 36415; 36573; 36600; 71045; 80048; 80053; 80061; 80320; 82375; 82550; 82805; 82962; 83036; 83605; 83735; 83880; 84100; 84145; 84439; 84443; 84484; 85025; 85027; 85379; 87070; 87426; 87804; 93005; 93970; 94002; 94003; 94640; 94660; 97110; 97162; 97166; 97530; 97535; 99291; C1725; C9113; C9803; J0456; J0696; J1200; J1650; J1815; J2060; J2250; J2270; J2920; J3010; J3475; J3480; J3490; J7050; J7060; J7626; G0480